=== PATIENT | male | born 1960 | race Caucasian/White ===

== ENCOUNTER → 2016-05-24 | Outpatient (CLI) | payer BC, OTHER ==
[2016-05-24 11:15] LABS: BASOPHILS % (AUTO) 0 % (0-2); EOSINOPHILS # (AUTO) 0.3 10^3uL; EOSINOPHILS % (AUTO) 3 % (0-4); LYMPHOCYTES # (AUTO) 1.3 X10^3; MEAN CORPUSCULAR VOLUME 89 FL (80-100); MEAN PLATELET VOLUME 10.7 FL (6.0-9.5); MONOCYTES # (AUTO) 0.8 X10^3; MONOCYTES % (AUTO) 11 % (3-11); NEUTROPHILS # (AUTO) 5.3 X10^3; NEUTROPHILS % (AUTO) 69 % (51-67); PLATELET COUNT 216 10^3uL (150-450); WHITE BLOOD COUNT 7.67 10^3uL (4.0-11.0)
[2016-05-24 11:16] LABS: MEAN CORPUSCULAR HEMOGLOBIN 33.2 PG (26.0-34.0); MEAN CORPUSCULAR HGB CONC 37.2 g/dL (31.0-37.0)
[2016-05-24 11:30] LABS: ALBUMIN 4.2 g/dL (3.4-5.0); ALKALINE PHOSPHATASE 84 U/L (38-126); ANION GAP 13.9 MEQ/L (3-15); BUN/CREATININE RATIO 19 (10-20); CALCULATED IONIZED CALCIUM 4.2 mg/dL (3.8-4.6); CREATINE KINASE 72 U/L (55-170); TOTAL PROTEIN 7.2 g/dL (6.4-8.5)
== END ==
LOC: RAD 10:58
PROVIDERS: ATTEND Family Medicine
DX: Z00.00 Encounter for general adult medical examination without abnormal findings (principal); N41.9 Inflammatory disease of prostate, unspecified
CPT/HCPCS: 36415; 71020; 80053; 80061; 82550; 82977; 83036; 84153; 84436; 84443; 85025; 93005